=== PATIENT | male | born 1985 | race Caucasian/White ===

== ENCOUNTER 2016-03-02 18:34 | Emergency (ER) | payer SELFPAY | END 2016-03-02 21:58 | disposition left against medical advice (07) | LOC: ER 18:34 | DX: Z53.21 Procedure and treatment not carried out due to patient leaving prior to being seen by health care provider (principal) | CPT/HCPCS: 36415; 80053; 81003; 83690; 85025 ==

== ENCOUNTER 2016-03-21 12:48 | Emergency (ER) | payer SELFPAY | END 2016-03-21 14:05 | disposition home or self-care (01) | LOC: FASTR 12:48 | DX: J01.10 Acute frontal sinusitis, unspecified (principal); F17.210 Nicotine dependence, cigarettes, uncomplicated | CPT/HCPCS: 87804 ==